=== PATIENT | male | born 1980 | race Caucasian/White ===

== ENCOUNTER 2017-01-09 11:39 | Inpatient (IN) | payer MEDICAID ==
[2017-01-09 12:33] LABS: BILIRUBIN,URINE NEGATIVE (NEGATIVE); PH,URINE 8.5 PH (5.0-7.5)
[2017-01-09 12:36] LABS: UA w/ MICROSCOPIC CHARGE YES
[2017-01-09 12:44] LABS: UR CULTURE IF IND INDICATED
[2017-01-09] MEDS ORDERED: ONDANSETRON 4 MG/2 ML VIAL IVP STA ×2 (13:32→14:29)
[2017-01-09] MEDS ORDERED: SODIUM CHLORIDE 0.9% 1,000 ML IV ONE (13:32)
[2017-01-09] MEDS ORDERED: HYDROmorphone 1 MG/ML SYRINGE IVP STA ×2 (13:32→14:00)
[2017-01-09] MEDS ORDERED: HYDROmorphone 1 MG/ML SYRINGE ONE ×3 (13:45→20:03)
[2017-01-09] MEDS ORDERED: SODIUM CHLORIDE FLUSH 0.9% 10 ML SYRINGE IVP ONE ×4 (13:45→20:06)
[2017-01-09] MEDS ORDERED: ONDANSETRON 4 MG/2 ML VIAL ONE ×2 (13:45→14:47)
[2017-01-09 13:59] LABS: ALBUMIN/GLOBULIN RATIO 1.5 (1.0-2.2); BILIRUBIN,TOTAL 0.8 mg/dL (0.2-1.0); CALCIUM 10.6 mg/dL (8.5-10.3); CREATININE 1.2 mg/dL (0.6-1.2); POTASSIUM 3.9 mmol/L (3.5-5.0); TOTAL PROTEIN 9.2 g/dL (6.7-8.2)
--- NOTE | 2017-01-09 13:59 | XRAY Preliminary Report ---
Exam: XR Chest 1 View IMPRESSION: Normal single view chest. [facility] SITE ID: [id number]
[2017-01-09 14:01] LABS: BASOPHILS % (AUTO) 0.3 %; HCT - HEMATOCRIT 55.5 % (42.0-52.0); HGB - HEMOGLOBIN 18.5 g/dL (14.0-18.0); LYMPHOCYTES # (AUTO) 1.3 10^3/uL (1.5-3.5); LYMPHOCYTES % (AUTO) 7.5 %; MEAN CORPUSCULAR HEMOGLOBIN 28.9 pg (27.0-31.0); MEAN CORPUSCULAR HGB CONC 33.4 g/dL (32.0-36.0); MEAN CORPUSCULAR VOLUME 86.6 fL (80.0-94.0); MEAN PLATELET VOLUME 7.4 fL (7.4-11.4); MONOCYTES # (AUTO) 0.9 10^3/uL (0.0-1.0); NEUTROPHILS # (AUTO) 15.2 10^3/uL (1.5-6.6); NEUTROPHILS % (AUTO) 87.2 %; NUCLEATED RED BLOOD CELLS AUTO 0.4 /100WBC; RED BLOOD COUNT 6.41 10^6/uL (4.70-6.10); RED CELL DISTRIBUTION WIDTH 15.2 % (12.0-15.0); UNCORRECTED WHITE BLOOD COUNT 17.4 x10^3/uL; WHITE BLOOD COUNT 17.4 x10^3/uL (4.8-10.8)
--- NOTE | 2017-01-09 14:02 | XRAY Report ---
EXAM: CHEST RADIOGRAPHY EXAM DATE: 01/09/2017 01:53 PM. CLINICAL HISTORY: COUGH CP RONCHI ON LEFT. COMPARISON: None. TECHNIQUE: 1 view. FINDINGS: Lungs/Pleura: No focal opacities evident. No pleural effusion. No pneumothorax. Decrease lung volumes Mediastinum: Within exam limitations, cardiomediastinal contour is normal. Other: None. IMPRESSION: Normal single view chest. [facility] Referring Provider Line: [phone] SITE ID: [id number]
[2017-01-09 14:42] LABS: PLATELET ESTIMATE, MANUAL NORMAL (130-450,000) (NORMAL); PLATELET MORPHOLOGY NORMAL APPEARANCE (NORMAL)
--- NOTE | 2017-01-09 14:45 | ED Physician Documentation ---
History of Present Illness - Stated complaint Stated Complaint: ABD PX/VOMITING - Chief complaint Chief Complaint: Abd Pain - Additonal information Additional information: hx from pt states he is normally healthy, no Pshx 3 days of cough NVD blood in vomit and diarrhea burning diffuse abd pain and chest pain no travel no sick contacts no recent antibiotics no camping no bad food states no hx same states occ marijuana use, no other drugs, no EtOH, smokes too Review of Systems Constitutional: denies: Fever, Chills Cardiac: reports: Chest pain / pressure Respiratory: reports: Dyspnea, Cough GI: reports: Abdominal Pain, Nausea, Vomiting, Diarrhea, Hematemesis, Bloody / black stool : denies: Dysuria, Testicular pain Endocrine: denies: Easy bruising / bleeding Immunocompromised: denies: Immunocompromised PD PAST MEDICAL HISTORY - Past Medical History Past Medical History: Yes GI: Ulcers - Present Medications Home Medications: Ambulatory Orders Medication Instructions Recorded Confirmed Ondansetron Odt [Zofran] 4 mg TL Q6H PRN #10 tablet 01/09/17 Sucralfate 1 gm PO ACHS #120 tablet 01/09/17 raNITIdine [Zantac] 150 mg PO BID #60 tablet 01/09/17 - Allergies Allergies/Adverse Reactions: Allergies Allergy/AdvReac Type Severity Reaction Status Date / Time No Known Drug Allergies Allergy Verified 01/09/17 11:45 - Social History Does the pt smoke?: Yes Smoking Status: Current every day smoker Does the pt drink ETOH?: No Substance Use and Type: Marijuana - Immunizations Immunizations: TDAP >10years/unknown PD ED PE NORMAL - Vitals Vital signs reviewed: Yes - General General: Alert and oriented X 3 - HEENT HEENT: PERRL - Neck Neck: Supple, no meningeal sign - Cardiac Cardiac: RRR - Respiratory Respiratory: No respiratory distress, Other (ronchi on left) - Abdomen Abdomen: Soft, Other (diffuse severe TTP but no peritoneal signs, non distended) - Male Male : Deferred (pt states no GI pain or swelling) - Neuro Neuro: Alert and oriented X 3 Results - Vitals Vitals: Vital Signs - 24 hr 01/09/17 01/09/17 01/09/17 11:41 12:23 13:30 Temperature 37 C Heart Rate 88 71 Respiratory 20 16 Rate Blood Pressure 150/84 H 147/94 H O2 Saturation 97 100 01/09/17 01/09/17 01/09/17 14:48 16:07 17:35 Temperature Heart Rate 77 89 84 Respiratory 16 16 16 Rate Blood Pressure 134/78 H 129/64 130/80 O2 Saturation 99 98 98 01/09/17 18:46 Temperature 36.8 C Heart Rate 80 Respiratory 18 Rate Blood Pressure 111/81 H O2 Saturation 96 Oxygen O2 Source Room air - Labs Labs: Laboratory Tests 01/09/17 01/09/17 01/09/17 12:26 13:40 13:40 WBC 17.4 H RBC 6.41 H Hgb 18.5 H Hct 55.5 H MCV 86.6 MCH 28.9 MCHC 33.4 RDW 15.2 H Plt Count 363 MPV 7.4 Neut # 15.2 H Lymph # 1.3 L [place] # 0.9 Eos # 0.0 Baso # 0.0 Absolute Nucleated RBC 0.08 Nucleated RBCs 0.4 Manual Slide Review Indicated Platelet Estimate NORMAL (130-450,000) Platelet Morphology NORMAL APPEARANCE RBC Morph Micro Appear NORMAL APPEARANCE Sodium 141 Potassium 3.9 Chloride 92 L Carbon Dioxide 33 H Anion Gap 16.0 H BUN 20 Creatinine 1.2 Estimated GFR (MDRD) 69 L Glucose 144 H Calcium 10.6 H Total Bilirubin 0.8 AST 35 ALT 27 Alkaline Phosphatase 104 Total Protein 9.2 H Albumin 5.5 Globulin 3.7 Albumin/Globulin Ratio 1.5 Lipase 15 L Urine Color DARK YELLOW Urine Clarity CLEAR Urine pH 8.5 H Ur Specific [place] 1.020 Urine Protein 100 H Urine Glucose (UA) NEGATIVE Urine Ketones 15 H Urine Occult Blood NEGATIVE Urine Nitrite NEGATIVE Urine Bilirubin NEGATIVE Urine Urobilinogen 0.2 (NORMAL) Ur Leukocyte Esterase NEGATIVE Urine RBC 0-5 Urine WBC 11-25 H Urine WBC Clumps PRESENT Ur Squamous Epith Cells FEW Squamous Urine Bacteria Many H Ur Microscopic Review INDICATED Urine Culture Comments INDICATED - Rads (name of study) CXR Radiology: See rad report (NACPD) CT AP with IV con Radiology: See rad report PD MEDICAL DECISION MAKING - ED course ED course: pt has sig ronchi L lung on exam, CXR fine, but given sx, exam and elev WBC considered txing empirically - but pt will be admitted for intractable GI sx so more prudent to simply recheck the CXR in the Am re severe burning abd pain CT = no esoph thickening and dilated gastric but no other acute, perhaps PUD/gastritis pt reported blood in vomit stool but not seen in ED ( I examined emesis myself and no blood was seen in that bag) and H/H stable + UA but no urinary sx - will wait on cx not getting relief with dilaudid so will try pepcid GI cocktail etc if sx controlled hope to dc with zmax for pna and zantac carafate phenergan despite dilaudid zofran phenergan carafate [place] sx persist and pt cannot tolerate PO will admit for intractable sx trying ofirmev for pain now Departure - Departure Disposition: ED Place in Observation Clinical Impression: Intractable abdominal pain, GERD with esophagitis Intractable vomiting Qualifiers: Vomiting type: unspecified Nausea presence: unspecified Qualified Code(s): R11.10 - Vomiting, unspecified Instructions: Abdominal Pain, ED GERD, ED Pneumonia Adult Prescriptions: Sucralfate 1 gm PO ACHS #120 tablet raNITIdine [Zantac] 150 mg PO BID #60 tablet Ondansetron Odt [Zofran] 4 mg TL Q6H PRN #10 tablet PRN Reason: Nausea / Vomiting Comments: The CT scan of your abdomen did not show any major problems in the abdomen - no bowel blockage/infection/perforation, no kidney stones or gallstones, normal pancreas, normal appendix, no aneurysm But your esophagus was thickened on CT scan and you should follow up with your PMD to get a referral to GI to get a scope of your stomach and esophagus This finding also makes me suspect you pain is due to gastritis / ulcers and acid reflux so I have prescribed medications for that. That would explain the blood in your vomit/stool too The blood work was notable for a high white blood cell count indicating infection or inflammation, a slightly elevated glucose level which could be due to illness but needs to be rechecked when you feel better, and an elevated calcium level which you should see you PMD about for further work up The urine test showed a possible urine infection, a final culture is being run and will be resulted in the next few days Your chest xray looked fine too but your left lung sounds terrible so i would recommend a repeat xray in a few days
[2017-01-09] MEDS ORDERED: IOPAMIDOL-300 100 ML VIAL IVP ONE (15:24)
--- NOTE | 2017-01-09 15:36 | CT Preliminary Report ---
Exam: CT Abdomen/Pelvis W/ IMPRESSION: 1. Distal esophageal wall thickening. 2. Moderate gastric distention. 3. Normal appendix [facility] SITE ID: [id number]
--- NOTE | 2017-01-09 15:38 | CT Report ---
EXAM: CT ABDOMEN AND PELVIS EXAM DATE: 01/09/2017 03:25 PM. CLINICAL HISTORY: Abdominal pain. COMPARISONS: None. TECHNIQUE: Routine helical CT imaging was performed through the abdomen and pelvis. IV contrast: 100 cc Isovue-300. Enteric contrast: No. Reconstructions: Coronal and sagittal. In accordance with CT protocol optimization, one or more of the following dose reduction techniques w ere utilized for this exam: automated exposure control, adjustment of mA and/or KV based on patient s ize, or use of iterative reconstructive technique. FINDINGS: Lung Bases: Unremarkable. Liver: Subcentimeter density left lobe too small to characterize. Gallbladder/Bile Ducts: Post cholecystectomy Spleen: Normal. Pancreas: Normal. Adrenal Glands: Normal. Kidneys: Normal. No masses or hydronephrosis. Peritoneal Cavity/Bowel: Distal esophageal wall thickening. Distended stomach. No free fluid. No retr operitoneal adenopathy. The appendix is well visualized and normal. Pelvic Organs: Normal. The bladder and visualized pelvic organs are within normal limits. Vasculature: No aneurysms or other significant abnormality. Bones: No significant abnormality. Other: None. IMPRESSION: 1. Distal esophageal wall thickening. 2. Moderate gastric distention. 3. Normal appendix [facility] Referring Provider Line: [phone] SITE ID: [id number]
[2017-01-09] MEDS ORDERED: LIDOCAINE VISCOUS 2% 15 ML UDC MM STA (16:59)
[2017-01-09] MEDS ORDERED: FAMOTIDINE 20 MG/50 ML 50 ML IV ONE ×2 (16:59→17:13)
[2017-01-09] MEDS ORDERED: PROMETHAZINE INJ 25 MG in SODIUM CHLORIDE 0.9% 50 ML IV STA (16:59)
[2017-01-09] MEDS ORDERED: MAG HYDROX/AL HYDROX/SIMETH 30 ML UDC PO STA (16:59)
[2017-01-09] MEDS ORDERED: MAG HYDROX/AL HYDROX/SIMETH 30 ML UDC ONE (17:13)
[2017-01-09] MEDS ORDERED: LIDOCAINE VISCOUS 2% 15 ML UDC MM ONE (17:13)
[2017-01-09] MEDS ORDERED: PROMETHAZINE 25 MG/1 ML VIAL ONE (17:13)
[2017-01-09] MEDS ORDERED: SODIUM CHLORIDE FLUSH 0.9% 10 ML SYRINGE IVP PRN ×3 (19:07→19:50)
[2017-01-09] MEDS ORDERED: PROMETHAZINE 25 MG/1 ML VIAL IM PRN ×4 (19:07→19:50)
[2017-01-09] MEDS ORDERED: HYDROmorphone 1 MG/ML SYRINGE IVP PRN ×3 (19:07→19:50)
[2017-01-09] MEDS ORDERED: PROCHLORPERAZINE 10 MG/2 ML VIAL IVP PRN ×3 (19:07→19:50)
[2017-01-09] MEDS ORDERED: PANTOPRAZOLE 40 MG VIAL IVP SCH ×4 (19:12→20:00)
[2017-01-09] MEDS ORDERED: MAG HYDROX/AL HYDROX/SIMETH 30 ML UDC PO PRN ×3 (19:22→19:50)
[2017-01-09] MEDS ORDERED: PROCHLORPERAZINE 10 MG/2 ML VIAL ONE (19:53)
[2017-01-09] MEDS ORDERED: DEXTROSE 5%-0.9% NACL 1,000 ML IV SCH ×3 (20:00)
[2017-01-09] MEDS: PROCHLORPERAZINE 10 MG/2 ML VIAL IVP PRN (20:00)
[2017-01-09] MEDS ORDERED: DEXTROSE 5%-0.9% NACL 1,000 ML IV ONE (20:06)
[2017-01-09] MEDS: HYDROmorphone 1 MG/ML SYRINGE IVP PRN (20:10)
[2017-01-09 20:35] LABS: ABG ANALYSIS TIME 2005; ABG PCO2 38 mmHg (34-45); ABG PH 7.47 (7.35-7.45)
[2017-01-09 20:36] LABS: ABG BASE EXCESS 3.4 mmol/L (-2.0-3.0); ABG OXYGEN SATURATION 97 % (94-98); ABG PO2 90 mmHg (80-100); ABG ROOM AIR YES; ABG SITE OF DRAW RIGHT RADIAL; ABG TCO2 28.2 MMOL/L (21.0-29.0); ALLEN TEST POSITIVE
[2017-01-09] MEDS ORDERED: NICOTINE 14 MG PATCH TOP SCH ×2 (21:00→21:04)
[2017-01-09] MEDS: SODIUM CHLORIDE FLUSH 0.9% 10 ML SYRINGE IVP SCH (21:08)
[2017-01-09] MEDS: DEXTROSE 5%-0.9% NACL 1,000 ML IV SCH (21:08)
[2017-01-09] MEDS: SUCRALFATE 1 GM/10 ML UDC PO SCH (21:36)
[2017-01-09] MEDS ORDERED: SODIUM CHLORIDE FLUSH 0.9% 10 ML SYRINGE IVP SCH ×3 (22:00)
[2017-01-09] MEDS ORDERED: SUCRALFATE 1 GM/10 ML UDC PO SCH ×3 (22:00)
[2017-01-10] MEDS: HYDROmorphone 1 MG/ML SYRINGE IVP PRN ×8 (00:05→21:37)
--- NOTE | 2017-01-10 01:43 | HISTORY & PHYSICAL EXAMINATION ---
DATE OF ADMISSION: 01/09/2017 HISTORY OF PRESENT ILLNESS: This is a 36-year-old white male with a negative past medical history. He is a smoker of 1/2-1 pack a day. The patient presents with a 2-day history of abdominal pain, retching, gagging, nausea and vomiting, one episode of hematemesis by his description, possibly diarrhea, overall arthralgias. In the emergency room, he was treated with antiemetics, as well as pain medications, but had intractable vomiting. Evaluation was undertaken and he was admitted for management of intractable vomiting, as well as abnormal lab results and x-ray results. REVIEW OF SYSTEMS: As above. He denies fever, chills, cough, sputum production, chest pain except that which radiates up from the abdomen, syncope, leg edema, prior history of similar symptoms. All other organ review of systems is negative. FAMILY HISTORY: Negative for heart disease or any significant abnormalities. MEDICATIONS AT HOME: None. ALLERGIES: NONE. SOCIAL HISTORY: He does drink alcohol socially, smokes cigarettes 1/2 to 1 pack a day, denies illicit drug use. He does occasionally use marijuana. PHYSICAL EXAMINATION: GENERAL: Reveals a white male who is in distress when he is vomiting. He is in no respiratory distress. He is warm and dry. He appears older than his age. VITAL SIGNS: Blood pressure 130/70, heart rate is in the 70s and 80s in sinus rhythm. He is afebrile, temperature 37. HEENT: Unremarkable. He has moist mucosa. NECK: Shows no JVD in the supine position. No carotid bruits, no thyromegaly or lymphadenopathy. CHEST: Clear. HEART: Sounds are normal. ABDOMEN: Soft, decreased bowel sounds, nontender. No guarding or rebound. EXTREMITIES: No clubbing, cyanosis, or edema. No calf tenderness. NEUROLOGIC: Grossly intact. LABORATORY: Sodium 141, potassium 3.9, chloride 92, carbon dioxide 33, anion gap high at 16. Creatinine 1.2. AST and ALT are normal. Lipase normal. White blood count elevated at 17.4 with a left shift with 15% neutrophils, hemoglobin is elevated at 18.5 (suggesting dehydration). Platelet count normal at 363. No INR was done. Urine shows pH of 8.5, specific gravity 1.02. He has urine ketones that are 15 (high), 11-25 white blood cells, and many bacteria. IMAGING: Chest x-ray unremarkable. CT of the abdomen and pelvis was remarkable and showed thickening of the distal esophagus, distended stomach normal- appearing appendix. No abdominal free air or adenopathy. There is no gallbladder (post-cholecystectomy). IMPRESSION: 1. Esophagitis. 2. Gastroenteritis. 3. Intractable vomiting. 4. Urinary tract infection. 5. Dehydration suggested by elevated hemoglobin and creatinine. PLAN: Admit the patient for hydration, start D5-normal saline at 100 mL an hour. Follow his electrolytes, magnesium, daily BMP. Obtain a blood gas to assure that he does not have acidosis, given the high anion gap which is likely from dehydration. Culture of the urine, blood and start antibiotics for urinary tract infection. Begin antiemetics and pain medications and begin Maalox p.r.n. and Carafate around the clock. Surgical consult for an EGD. Bowel rest except for ice chips. Follow his CBC and differential. Nicoderm patch will be ordered at his request. JOB #: [id number] EXT JOB #:[id number] ASHLEY
[2017-01-10] MEDS: PROCHLORPERAZINE 10 MG/2 ML VIAL IVP PRN ×3 (03:31→18:31)
[2017-01-10 04:19] LABS: H. PYLORI IGG ANTIBODY Negative (Negative); HPYLORI NEG QC Negative (Negative); HPYLORI POS QC POSITIVE (Positive)
[2017-01-10] MEDS: DEXTROSE 5%-0.9% NACL 1,000 ML IV SCH ×2 (05:52→21:36)
[2017-01-10] MEDS: SODIUM CHLORIDE FLUSH 0.9% 10 ML SYRINGE IVP SCH ×3 (05:53→17:24)
[2017-01-10] MEDS: SUCRALFATE 1 GM/10 ML UDC PO SCH (05:53)
[2017-01-10] MEDS: POLYETHYLENE GLYCOL 3350 17 GM PACKET PO SCH (07:28)
[2017-01-10] MEDS ORDERED: POLYETHYLENE GLYCOL 3350 17 GM PACKET PO SCH ×3 (09:00)
[2017-01-10] MEDS: NICOTINE 14 MG PATCH TOP SCH (10:16)
[2017-01-10] MEDS: ceFAZolin 1 GM in SODIUM CHLORIDE 0.9% MINIBAG 100 ML IV SCH ×2 (10:16→16:37)
[2017-01-10] MEDS ORDERED: BENZOCAINE/TETRACAINE/BUTAMBEN SPRAY 56 GM TOP ONE (15:16)
--- NOTE | 2017-01-10 15:16 | CONSULTATION NOTE ---
DATE OF CONSULTATION: 01/10/2017 00:00:00 REQUESTING PROVIDER: Prince Carrion MD. REASON FOR REFERRAL: Abdominal pain, nausea and vomiting. HISTORY OF PRESENT ILLNESS: The patient is a 36-year-old male who presents with at least a 4-year his tory of intermittent nausea and vomiting along with epigastric pain. He now presents to the hospital with 4-day ongoing history of this nausea and vomiting. Four years ago he had developed these symptom s and had underwent a laparoscopic cholecystectomy in order to see if this would help relieve his sym ptoms. It did not. Since then, he has had these symptoms every couple months. There does not appear t o be anything that sets it off such as diet or activity. He has tried [id number] PPIs which has helped his reflux improve, but has not helped with nausea, vomiting, and abdominal pain. He had seen his primary doctor recently who had referred him to a reordering clerk, but he has not had time to followup. He now presents with a 4-day history of these symptoms. It usually starts with throwing up what he had eaten and then dry heaves or emesis with bile that is green. Epigastric pain is what usu ally starts and does not radiate anywhere. He has had minimal blood with the emesis. He has not had a ny significant diarrhea or constipation, fevers or chills. He thinks he may have had an ulcer in the past but has never had an upper endoscopy. He also thinks that they have checked his stools at an out side facility and that may have been positive for H pylori, but he is not able to confirm this. PAST SURGICAL HISTORY: Laparoscopic cholecystectomy. MEDICATIONS: None. ALLERGIES TO MEDICATIONS: NONE. FAMILY HISTORY: He feels that he believes his mother was tested positive for the BRCA gene and she clements d encouraged the patient to be tested. HABITS: The patient drinks alcohol socially. He smokes a 1/2 to a pack of cigarettes a day. Denies an y drug use. SOCIAL HISTORY: The patient is single and is moving to [facility] shortly. REVIEW OF SYSTEMS: A complete review of systems was obtained. CONSTITUTIONAL: Not feeling well. GASTROINTESTINAL: Abdominal pain, nausea, and vomiting. A 12-point review of systems obtained with pertinent positives discussed and all others being negativ e. PHYSICAL EXAMINATION: VITAL SIGNS: Temperature is 36.6, heart rate 70, blood pressure 121/81. GENERAL: The patient is lying in bed. He is cooperative, in no distress at the current time. HEENT: Eyes nonicteric. NECK: No lymphadenopathy. HEART: Regular. LUNGS: Clear. BACK: Nontender. ABDOMEN: Soft, nontender. No hernias. EXTREMITIES: No edema or cyanosis. NEUROLOGICAL: The patient appears to be neurologically intact without any deficits. PSYCHOLOGICAL: The patient is coherent, cooperative, and appears to answer questions fully. DIAGNOSTIC DATA: White blood cell count of 17.4, hemoglobin 18.5, platelets of 363. Liver function te sts within normal limits. ASSESSMENT: 1. Abdominal pain, nausea, vomiting, most likely secondary to some type of gastritis. I recommend he undergo esophagogastroduodenoscopy with possible biopsy. The risks and possible complications of the procedure have been explained to him and include, but are not limited to bleeding, aspiration, injuri es to the GI tract causing major morbidity, need for further intervention, negative endoscopy, etc. Yasir cotton wishes to proceed with the procedure. 2. Dehydration as his hemoglobin and rest of labs are being elevated. He has been adequately hydrated overnight. PLAN: 1. NPO. 2. IV fluids. 3. Esophagogastroduodenoscopy with biopsy. JOB #: [id number] EXT JOB #:[id number]
[2017-01-10] MEDS ORDERED: SODIUM CHLORIDE 0.9% 1,000 ML IV ONE (15:17)
[2017-01-10] MEDS ORDERED: fentaNYL 100 MCG/2 ML VIAL ONE (15:48)
[2017-01-10] MEDS ORDERED: FLUCONAZOLE 200 MG/100 ML 100 ML IV SCH (16:00)
[2017-01-10] MEDS ORDERED: TUBERCULIN 5 TUB UNIT/0.1 ML 1 ML MDV ID ONE (17:11)
--- NOTE | 2017-01-10 17:17 | PROVIDER PROGRESS NOTE ---
Assessment/Plan - Problem List (1) GERD with esophagitis Assessment/Plan: He is slightly improved. (2) Fungal esophagitis Assessment/Plan: EGD revealed fungal esophagitis Will stat diflucan Will check for TB and HIVB. - Current Meds Current Meds: Current Medications Generic Name Dose Route Start Last Admin Trade Name Freq PRN Reason Stop Dose Admin Hydromorphone HCl 1 mg 01/09/17 19:50 01/10/17 14:32 Dilaudid Inj IVP 1 mg Q2HR PRN Administration Pain 8 to 10 Dextrose/Sodium Chloride 1,000 mls @ 100 mls/hr 01/09/17 20:00 01/10/17 05:52 D5ns IV 100 mls/hr .Q10H MORAIMA Administration Cefazolin Sodium 1 gm/ Sodium 100 mls @ 200 mls/hr 01/10/17 09:00 01/10/17 16: 37 Chloride IV 200 mls/hr Q8H MORAIMA Administration Fluconazole 100 mls @ 100 mls/hr 01/10/17 16:00 01/10/17 16:38 Diflucan 200 Mg/100 Ml IV 01/10/17 18:00 100 mls/hr ONCE MORAIMA Administration Nicotine 1 patch 01/10/17 09:00 01/10/17 10:16 Nicoderm TOP 1 patch DAILY MORAIMA Administration Polyethylene Glycol 17 gm 01/10/17 09:00 01/10/17 07:28 Miralax PO Not Given DAILY MORAIMA Prochlorperazine Edisylate 10 mg 01/09/17 19:50 01/10/17 10:15 Compazine Inj IVP 10 mg Q6HR PRN Administration Nausea / Vomiting Sodium Chloride 10 ml 01/09/17 22:00 01/10/17 14:28 Normal Saline Flush 0.9% IVP Not Given Q8HR MORAIMA - Lab Result Fish Bone Diagrams: 01/09/17 13:40 01/09/17 13:40 - Additional Planning My Orders: My Active Orders 01/10/17 16:58 Miscellaenous Nursing Order [RC] QSHIFT 01/10/17 17:11 Tuberculin [Tubersol] 5 unit ID ONCE ONE 01/11/17 05:00 CBC - COMP BLD CT W/AUTO DIFF [HEME] DAILYLAB COMPREHENSIVE METABOLIC PANEL [CHEM] DAILYLAB HIV AB/AG 4TH GEN W/REFLEX [REFLAB] DAILYLAB 01/12/17 05:00 CBC - COMP BLD CT W/AUTO DIFF [HEME] DAILYLAB COMPREHENSIVE METABOLIC PANEL [CHEM] DAILYLAB 01/13/17 05:00 CBC - COMP BLD CT W/AUTO DIFF [HEME] DAILYLAB COMPREHENSIVE METABOLIC PANEL [CHEM] DAILYLAB Subjective - Subjective Patient Reports: Resting Comfortably, Abdominal Pain Objective Vital Signs: Vital Signs - 24 hr 01/09/17 01/09/17 01/10/17 19:35 23:59 08:11 Temperature 37.0 C 37.1 C 36.6 C Heart Rate [ 67 68 70 Brachial] Respiratory 16 22 18 Rate Blood Pressure [Left Brachial artery] Blood Pressure 143/76 H 132/81 H 121/81 H [Right Brachial artery] O2 Saturation 99 98 98 01/10/17 01/10/17 01/10/17 15:25 15:30 15:35 Temperature Heart Rate [ Brachial] Respiratory Rate Blood Pressure [Left Brachial artery] Blood Pressure [Right Brachial artery] O2 Saturation 93 98 96 01/10/17 01/10/17 01/10/17 15:40 15:51 16:00 Temperature Heart Rate [ Brachial] Respiratory Rate Blood Pressure [Left Brachial artery] Blood Pressure [Right Brachial artery] O2 Saturation 100 97 96 01/10/17 01/10/17 16:15 16:45 Temperature 36.7 C 36.3 C L Heart Rate [ 94 49 L Brachial] Respiratory 16 18 Rate Blood Pressure 96/63 124/74 [Left Brachial artery] Blood Pressure [Right Brachial artery] O2 Saturation 95 100 Oxygen O2 Source Room air I&O (Last 24 Hrs): Intake and Output Totals x24h 01/08/17 01/09/17 01/10/17 23:59 23:59 23:59 Intake Total 160 721 Output Total 300 Balance -140 721 General: Alert, Oriented x3, Cooperative HEENT: PERRLA, EOMI Neck: No JVD, No thyromegaly Neuro: Alert, Oriented Times 3 Cardiovascular: Regular rate, No murmurs Respiratory: No respiratory distress, Breath sounds nml Abdomen: Normal bowel sounds - Results Results: Laboratory Results WBC 17.4 x10^3/uL (4.8-10.8) H 01/09/17 13:40 RBC 6.41 10^6/uL (4.70-6.10) H 01/09/17 13:40 Hgb 18.5 g/dL (14.0-18.0) H 01/09/17 13:40 Hct 55.5 % (42.0-52.0) H 01/09/17 13:40 MCV 86.6 fL (80.0-94.0) 01/09/17 13:40 MCH 28.9 pg (27.0-31.0) 01/09/17 13:40 MCHC 33.4 g/dL (32.0-36.0) 01/09/17 13:40 RDW 15.2 % (12.0-15.0) H 01/09/17 13:40 Plt Count 363 10^3/uL (130-450) 01/09/17 13:40 MPV 7.4 fL (7.4-11.4) 01/09/17 13:40 Neut # 15.2 10^3/uL (1.5-6.6) H 01/09/17 13:40 Lymph # 1.3 10^3/uL (1.5-3.5) L 01/09/17 13:40 [place] # 0.9 10^3/uL (0.0-1.0) 01/09/17 13:40 Eos # 0.0 10^3/uL (0.0-0.7) 01/09/17 13:40 Baso # 0.0 10^3/uL (0.0-0.1) 01/09/17 13:40 Absolute Nucleated RBC 0.08 x10^3/uL 01/09/17 13:40 Nucleated RBCs 0.4 /100WBC 01/09/17 13:40 Manual Slide Review Indicated 01/09/17 13:40 Platelet Estimate NORMAL (130-450,000) (NORMAL) 01/09/17 13:40 Platelet Morphology NORMAL APPEARANCE (NORMAL) 01/09/17 13:40 RBC Morph Micro Appear NORMAL APPEARANCE (NORMAL) 01/09/17 13:40 Bld Gas Analysis Time 200401/09/17 20:05 Sample Site RIGHT RADIAL 01/09/17 20:05 ABG pH 7.47 (7.35-7.45) H 01/09/17 20:05 ABG pCO2 38 mmHg (34-45) 01/09/17 20:05 ABG pO2 90 mmHg (80-100) 01/09/17 20:05 ABG HCO3 27.0 mmol/L (22.0-26.0) H 01/09/17 20:05 ABG Total CO2 28.2 MMOL/L (21.0-29.0) 01/09/17 20:05 ABG O2 Saturation 97 % (94-98) 01/09/17 20:05 ABG Base Excess 3.4 mmol/L (-2.0-3.0) H 01/09/17 20:05 Nghia Test POSITIVE 01/09/17 20:05 Room Air YES 01/09/17 20:05 Sodium 141 mmol/L (135-145) 01/09/17 13:40 Potassium 3.9 mmol/L (3.5-5.0) 01/09/17 13:40 Chloride 92 mmol/L (101-111) L 01/09/17 13:40 Carbon Dioxide 33 mmol/L (21-32) H 01/09/17 13:40 Anion Gap 16.0 (6-13) H 01/09/17 13:40 BUN 20 mg/dL (6-20) 01/09/17 13:40 Creatinine 1.2 mg/dL (0.6-1.2) 01/09/17 13:40 Estimated GFR (MDRD) 69 (>89) L 01/09/17 13:40 Glucose 144 mg/dL (70-100) H 01/09/17 13:40 Calcium 10.6 mg/dL (8.5-10.3) H 01/09/17 13:40 Total Bilirubin 0.8 mg/dL (0.2-1.0) 01/09/17 13:40 AST 35 IU/L (10-42) 01/09/17 13:40 ALT 27 IU/L (10-60) 01/09/17 13:40 Alkaline Phosphatase 104 IU/L (42-121) 01/09/17 13:40 Total Protein 9.2 g/dL (6.7-8.2) H 01/09/17 13:40 Albumin 5.5 g/dL (3.2-5.5) 01/09/17 13:40 Globulin 3.7 g/dL (2.1-4.2) 01/09/17 13:40 Albumin/Globulin Ratio 1.5 (1.0-2.2) 01/09/17 13:40 Lipase 15 U/L (22-51) L 01/09/17 13:40 Urine Color DARK YELLOW 01/09/17 12:26 Urine Clarity CLEAR (CLEAR) 01/09/17 12:26 Urine pH 8.5 PH (5.0-7.5) H 01/09/17 12:26 Ur Specific [place] 1.020 (1.002-1.030) 01/09/17 12:26 Urine Protein 100 mg/dL (NEGATIVE) H 01/09/17 12:26 Urine Glucose (UA) NEGATIVE mg/dL (NEGATIVE) 01/09/17 12:26 Urine Ketones 15 mg/dL (NEGATIVE) H 01/09/17 12:26 Urine Occult Blood NEGATIVE (NEGATIVE) 01/09/17 12:26 Urine Nitrite NEGATIVE (NEGATIVE) 01/09/17 12:26 Urine Bilirubin NEGATIVE (NEGATIVE) 01/09/17 12:26 Urine Urobilinogen 0.2 (NORMAL) E.U./dL (NORMAL) 01/09/17 12:26 Ur Leukocyte Esterase NEGATIVE (NEGATIVE) 01/09/17 12:26 Urine RBC 0-5 /HPF (0-5) 01/09/17 12:26 Urine WBC 11-25 /HPF (0-3) H 01/09/17 12:26 Urine WBC Clumps PRESENT 01/09/17 12:26 Ur Squamous Epith Cells FEW Squamous (<= Few) 01/09/17 12:26 Urine Bacteria Many /HPF (None Seen) H 01/09/17 12:26 Ur Microscopic Review INDICATED 01/09/17 12:26 Urine Culture Comments INDICATED 01/09/17 12:26 H. pylori IgG Antibody Negative (Negative) 01/09/17 13:40
[2017-01-10] MEDS: MAG HYDROX/AL HYDROX/SIMETH 30 ML UDC PO PRN (17:21)
[2017-01-10] MEDS: SODIUM CHLORIDE FLUSH 0.9% 10 ML SYRINGE IVP PRN ×2 (19:23→21:37)
[2017-01-10] MEDS: ALPRAZolam 0.25 MG TABLET PO PRN (22:37)
[2017-01-11] MEDS: ceFAZolin 1 GM in SODIUM CHLORIDE 0.9% MINIBAG 100 ML IV SCH ×3 (01:47→17:01)
[2017-01-11] MEDS: HYDROmorphone 1 MG/ML SYRINGE IVP PRN ×6 (01:48→20:28)
[2017-01-11] MEDS: PROCHLORPERAZINE 10 MG/2 ML VIAL IVP PRN ×3 (02:11→17:09)
[2017-01-11] MEDS: SODIUM CHLORIDE FLUSH 0.9% 10 ML SYRINGE IVP PRN ×2 (02:16→02:17)
[2017-01-11] MEDS: SODIUM CHLORIDE FLUSH 0.9% 10 ML SYRINGE IVP SCH ×3 (06:09→17:02)
[2017-01-11] MEDS: PANTOPRAZOLE 40 MG TABLET PO SCH (06:10)
[2017-01-11 06:46] LABS: BASOPHILS # (AUTO) 0.1 10^3/uL (0.0-0.1); BASOPHILS % (AUTO) 0.7 %; EOSINOPHILS % (AUTO) 0.2 %; HCT - HEMATOCRIT 44.9 % (42.0-52.0); HGB - HEMOGLOBIN 14.9 g/dL (14.0-18.0); LYMPHOCYTES # (AUTO) 1.8 10^3/uL (1.5-3.5); LYMPHOCYTES % (AUTO) 16.5 %; MEAN CORPUSCULAR HEMOGLOBIN 29.4 pg (27.0-31.0); MEAN CORPUSCULAR HGB CONC 33.2 g/dL (32.0-36.0); MEAN CORPUSCULAR VOLUME 88.5 fL (80.0-94.0); MEAN PLATELET VOLUME 7.2 fL (7.4-11.4); MONOCYTES # (AUTO) 0.6 10^3/uL (0.0-1.0); MONOCYTES % (AUTO) 5.2 %; NEUTROPHILS # (AUTO) 8.5 10^3/uL (1.5-6.6); NEUTROPHILS % (AUTO) 77.4 %; RED BLOOD COUNT 5.07 10^6/uL (4.70-6.10); RED CELL DISTRIBUTION WIDTH 15.2 % (12.0-15.0)
[2017-01-11 06:58] LABS: ALBUMIN/GLOBULIN RATIO 1.4 (1.0-2.2); BILIRUBIN,TOTAL 0.8 mg/dL (0.2-1.0); CALCIUM 8.9 mg/dL (8.5-10.3); CREATININE 0.9 mg/dL (0.6-1.2); POTASSIUM 4.2 mmol/L (3.5-5.0); TOTAL PROTEIN 6.4 g/dL (6.7-8.2)
--- NOTE | 2017-01-11 07:55 | PROVIDER PROGRESS NOTE ---
Assessment/Plan - Problem List (1) GERD with esophagitis Assessment/Plan: He ate some pudding last night and kept it down though it hurt. H pylori was neg. (2) Fungal esophagitis Assessment/Plan: He had HIV test which is pending. He had PPD placed which is neg so far,24 hrs. he is on the Diflucan. - Current Meds Current Meds: Current Medications Generic Name Dose Route Start Last Admin Trade Name Freq PRN Reason Stop Dose Admin Al Hydroxide/Mg Hydroxide 30 ml 01/09/17 19:50 01/10/17 17:21 Mylanta Plus PO 30 ml TID PRN Administration Abdominal Pain Alprazolam 1 mg 01/10/17 22:09 01/10/17 22:37 Xanax PO 1 mg QPM PRN Administration Anxiety Hydromorphone HCl 1 mg 01/09/17 19:50 01/11/17 06:10 Dilaudid Inj IVP 1 mg Q2HR PRN Administration Pain 8 to 10 Dextrose/Sodium Chloride 1,000 mls @ 100 mls/hr 01/09/17 20:00 01/10/17 21:36 D5ns IV 100 mls/hr .Q10H MORAIMA Administration Cefazolin Sodium 1 gm/ Sodium 100 mls @ 200 mls/hr 01/10/17 09:00 01/11/17 01: 47 Chloride IV 200 mls/hr Q8H MORAIMA Administration Nicotine 1 patch 01/10/17 09:00 01/10/17 10:16 Nicoderm TOP 1 patch DAILY MORAIMA Administration Pantoprazole Sodium 40 mg 01/11/17 07:00 01/11/17 06:10 Protonix PO 40 mg QDAC MORAIMA Administration Polyethylene Glycol 17 gm 01/10/17 09:00 01/10/17 07:28 Miralax PO Not Given DAILY MORAIMA Prochlorperazine Edisylate 10 mg 01/09/17 19:50 01/11/17 02:11 Compazine Inj IVP 10 mg Q6HR PRN Administration Nausea / Vomiting Sodium Chloride 10 ml 01/09/17 19:50 01/11/17 02:17 Normal Saline Flush 0.9% IVP 10 ml PRN PRN Administration NEEDED PER PROVIDER ORDERS Sodium Chloride 10 ml 01/09/17 22:00 01/11/17 06:09 Normal Saline Flush 0.9% IVP 10 ml Q8HR MORAIMA Administration - Lab Result Fish Bone Diagrams: 01/11/17 06:21 01/11/17 06:21 - Additional Planning My Orders: My Active Orders 01/11/17 06:21 HIV AB/AG 4TH GEN W/REFLEX [REFLAB] DAILYLAB 01/12/17 05:00 CBC - COMP BLD CT W/AUTO DIFF [HEME] DAILYLAB COMPREHENSIVE METABOLIC PANEL [CHEM] DAILYLAB 01/13/17 05:00 CBC - COMP BLD CT W/AUTO DIFF [HEME] DAILYLAB COMPREHENSIVE METABOLIC PANEL [CHEM] DAILYLAB Subjective - Subjective Patient Reports: Abdominal Pain Nursing Reports: Pain Objective Vital Signs: Vital Signs - 24 hr 01/10/17 01/10/17 01/10/17 08:11 15:25 15:30 Temperature 36.6 C Heart Rate [ 70 Brachial] Respiratory 18 Rate Blood Pressure [Left Brachial artery] Blood Pressure 121/81 H [Right Brachial artery] O2 Saturation 98 93 98 01/10/17 01/10/17 01/10/17 15:35 15:40 15:51 Temperature Heart Rate [ Brachial] Respiratory Rate Blood Pressure [Left Brachial artery] Blood Pressure [Right Brachial artery] O2 Saturation 96 100 97 01/10/17 01/10/17 01/10/17 16:00 16:15 16:45 Temperature 36.7 C 36.3 C L Heart Rate [ 94 49 L Brachial] Respiratory 16 18 Rate Blood Pressure 96/63 124/74 [Left Brachial artery] Blood Pressure [Right Brachial artery] O2 Saturation 96 95 100 01/10/17 01/10/17 01/10/17 18:55 20:19 23:45 Temperature 36.8 C 37.1 C 36.8 C Heart Rate [ 80 90 71 Brachial] Respiratory 16 18 16 Rate Blood Pressure 115/55 L 97/56 L [Left Brachial artery] Blood Pressure 124/82 H [Right Brachial artery] O2 Saturation 98 95 97 Oxygen O2 Source Room air I&O (Last 24 Hrs): Intake and Output Totals x24h 01/09/17 01/10/17 01/11/17 23:59 23:59 23:59 Intake Total 160 2319 300 Output Total 300 Balance -140 2319 300 General: Alert, Oriented x3, Cooperative HEENT: PERRLA, EOMI Neck: No JVD, No thyromegaly Neuro: Alert, Oriented Times 3 Cardiovascular: Regular rate, No murmurs Respiratory: No respiratory distress, Breath sounds nml - Results Results: Laboratory Results WBC 11.0 x10^3/uL (4.8-10.8) H 01/11/17 06:21 RBC 5.07 10^6/uL (4.70-6.10) 01/11/17 06:21 Hgb 14.9 g/dL (14.0-18.0) 01/11/17 06:21 Hct 44.9 % (42.0-52.0) 01/11/17 06:21 MCV 88.5 fL (80.0-94.0) 01/11/17 06:21 MCH 29.4 pg (27.0-31.0) 01/11/17 06:21 MCHC 33.2 g/dL (32.0-36.0) 01/11/17 06:21 RDW 15.2 % (12.0-15.0) H 01/11/17 06:21 Plt Count 231 10^3/uL (130-450) 01/11/17 06:21 MPV 7.2 fL (7.4-11.4) L 01/11/17 06:21 Neut # 8.5 10^3/uL (1.5-6.6) H 01/11/17 06:21 Lymph # 1.8 10^3/uL (1.5-3.5) 01/11/17 06:21 [place] # 0.6 10^3/uL (0.0-1.0) 01/11/17 06:21 Eos # 0.0 10^3/uL (0.0-0.7) 01/11/17 06:21 Baso # 0.1 10^3/uL (0.0-0.1) 01/11/17 06:21 Absolute Nucleated RBC 0.00 x10^3/uL 01/11/17 06:21 Nucleated RBCs 0.0 /100WBC 01/11/17 06:21 Manual Slide Review Indicated 01/09/17 13:40 Platelet Estimate NORMAL (130-450,000) (NORMAL) 01/09/17 13:40 Platelet Morphology NORMAL APPEARANCE (NORMAL) 01/09/17 13:40 RBC Morph Micro Appear NORMAL APPEARANCE (NORMAL) 01/09/17 13:40 Bld Gas Analysis Time 200401/09/17 20:05 Sample Site RIGHT RADIAL 01/09/17 20:05 ABG pH 7.47 (7.35-7.45) H 01/09/17 20:05 ABG pCO2 38 mmHg (34-45) 01/09/17 20:05 ABG pO2 90 mmHg (80-100) 01/09/17 20:05 ABG HCO3 27.0 mmol/L (22.0-26.0) H 01/09/17 20:05 ABG Total CO2 28.2 MMOL/L (21.0-29.0) 01/09/17 20:05 ABG O2 Saturation 97 % (94-98) 01/09/17 20:05 ABG Base Excess 3.4 mmol/L (-2.0-3.0) H 01/09/17 20:05 Nghia Test POSITIVE 01/09/17 20:05 Room Air YES 01/09/17 20:05 Sodium 137 mmol/L (135-145) 01/11/17 06:21 Potassium 4.2 mmol/L (3.5-5.0) 01/11/17 06:21 Chloride 103 mmol/L (101-111) 01/11/17 06:21 Carbon Dioxide 28 mmol/L (21-32) 01/11/17 06:21 Anion Gap 6.0 (6-13) 01/11/17 06:21 BUN 15 mg/dL (6-20) 01/11/17 06:21 Creatinine 0.9 mg/dL (0.6-1.2) 01/11/17 06:21 Estimated GFR (MDRD) 96 (>89) 01/11/17 06:21 Glucose 117 mg/dL (70-100) H 01/11/17 06:21 Calcium 8.9 mg/dL (8.5-10.3) 01/11/17 06:21 Total Bilirubin 0.8 mg/dL (0.2-1.0) 01/11/17 06:21 AST 20 IU/L (10-42) 01/11/17 06:21 ALT 19 IU/L (10-60) 01/11/17 06:21 Alkaline Phosphatase 71 IU/L (42-121) 01/11/17 06:21 Total Protein 6.4 g/dL (6.7-8.2) L 01/11/17 06:21 Albumin 3.7 g/dL (3.2-5.5) 01/11/17 06:21 Globulin 2.7 g/dL (2.1-4.2) 01/11/17 06:21 Albumin/Globulin Ratio 1.4 (1.0-2.2) 01/11/17 06:21 Lipase 15 U/L (22-51) L 01/09/17 13:40 Urine Color DARK YELLOW 01/09/17 12:26 Urine Clarity CLEAR (CLEAR) 01/09/17 12:26 Urine pH 8.5 PH (5.0-7.5) H 01/09/17 12:26 Ur Specific [place] 1.020 (1.002-1.030) 01/09/17 12:26 Urine Protein 100 mg/dL (NEGATIVE) H 01/09/17 12:26 Urine Glucose (UA) NEGATIVE mg/dL (NEGATIVE) 01/09/17 12:26 Urine Ketones 15 mg/dL (NEGATIVE) H 01/09/17 12:26 Urine Occult Blood NEGATIVE (NEGATIVE) 01/09/17 12:26 Urine Nitrite NEGATIVE (NEGATIVE) 01/09/17 12:26 Urine Bilirubin NEGATIVE (NEGATIVE) 01/09/17 12:26 Urine Urobilinogen 0.2 (NORMAL) E.U./dL (NORMAL) 01/09/17 12:26 Ur Leukocyte Esterase NEGATIVE (NEGATIVE) 01/09/17 12:26 Urine RBC 0-5 /HPF (0-5) 01/09/17 12:26 Urine WBC 11-25 /HPF (0-3) H 01/09/17 12:26 Urine WBC Clumps PRESENT 01/09/17 12:26 Ur Squamous Epith Cells FEW Squamous (<= Few) 01/09/17 12:26 Urine Bacteria Many /HPF (None Seen) H 01/09/17 12:26 Ur Microscopic Review INDICATED 01/09/17 12:26 Urine Culture Comments INDICATED 01/09/17 12:26 H. pylori IgG Antibody Negative (Negative) 01/09/17 13:40
[2017-01-11] MEDS: POLYETHYLENE GLYCOL 3350 17 GM PACKET PO SCH (09:21)
[2017-01-11] MEDS: NICOTINE 14 MG PATCH TOP SCH (10:44)
[2017-01-11] MEDS: FLUCONAZOLE 100 MG TABLET PO SCH (10:45)
--- NOTE | 2017-01-11 12:14 | PROVIDER PROGRESS NOTE ---
Subjective - General Admit Date: 01/09/17 Objective - Patient Data Vital Signs: Vital Signs x48h Temp Pulse Resp BP Pulse Ox 01/11/17 08:23 36.5 C 84 18 102/62 99 Weight: Weight 01/09/17 01/10/17 01/11/17 23:59 23:59 23:59 Weight (kg) 68.039 kg Intake & Output: Intake and Output Totals x24h 01/09/17 01/10/17 01/11/17 23:59 23:59 23:59 Intake Total 160 2319 540 Output Total 300 Balance -140 2319 540 - Lab Results Lab Results: 01/11/17 06:21 01/11/17 06:21 Other Lab Results: Lab Results x24hrs 01/11/17 01/11/17 Range/Units 06:21 06:21 WBC 11.0 H (4.8-10.8) x10^3/uL RBC 5.07 (4.70-6.10) 10^6/uL Hgb 14.9 (14.0-18.0) g/dL Hct 44.9 (42.0-52.0) % MCV 88.5 (80.0-94.0) fL MCH 29.4 (27.0-31.0) pg MCHC 33.2 (32.0-36.0) g/dL RDW 15.2 H (12.0-15.0) % Plt Count 231 (130-450) 10^3/uL MPV 7.2 L (7.4-11.4) fL Neut # 8.5 H (1.5-6.6) 10^3/uL Lymph # 1.8 (1.5-3.5) 10^3/uL [place] # 0.6 (0.0-1.0) 10^3/uL Eos # 0.0 (0.0-0.7) 10^3/uL Baso # 0.1 (0.0-0.1) 10^3/uL Absolute Nucleated RBC 0.00 x10^3/uL Nucleated RBCs 0.0 /100WBC Sodium 137 (135-145) mmol/L Potassium 4.2 (3.5-5.0) mmol/L Chloride 103 (101-111) mmol/L Carbon Dioxide 28 (21-32) mmol/L Anion Gap 6.0 (6-13) BUN 15 (6-20) mg/dL Creatinine 0.9 (0.6-1.2) mg/dL Estimated GFR (MDRD) 96 (>89) Glucose 117 H (70-100) mg/dL Calcium 8.9 (8.5-10.3) mg/dL Total Bilirubin 0.8 (0.2-1.0) mg/dL AST 20 (10-42) IU/L ALT 19 (10-60) IU/L Alkaline Phosphatase 71 (42-121) IU/L Total Protein 6.4 L (6.7-8.2) g/dL Albumin 3.7 (3.2-5.5) g/dL Globulin 2.7 (2.1-4.2) g/dL Albumin/Globulin Ratio 1.4 (1.0-2.2) - Current Medications Current Medications: Current Medications Generic Name Dose Route Start Last Admin Trade Name Freq PRN Reason Stop Dose Admin Al Hydroxide/Mg Hydroxide 30 ml 01/09/17 19:50 01/10/17 17:21 Mylanta Plus PO 30 ml TID PRN Administration Abdominal Pain Alprazolam 1 mg 01/10/17 22:09 01/10/17 22:37 Xanax PO 1 mg QPM PRN Administration Anxiety Fluconazole 100 mg 01/11/17 09:00 01/11/17 10:45 Diflucan PO 100 mg DAILY MORAIMA Administration Hydromorphone HCl 1 mg 01/09/17 19:50 01/11/17 10:44 Dilaudid Inj IVP 1 mg Q2HR PRN Administration Pain 8 to 10 Dextrose/Sodium Chloride 1,000 mls @ 100 mls/hr 01/09/17 20:00 01/10/17 21:36 D5ns IV 100 mls/hr .Q10H MORAIMA Administration Cefazolin Sodium 1 gm/ Sodium 100 mls @ 200 mls/hr 01/10/17 09:00 01/11/17 10: 45 Chloride IV 200 mls/hr Q8H MORAIMA Administration Nicotine 1 patch 01/10/17 09:00 01/11/17 10:44 Nicoderm TOP 1 patch DAILY MORAIMA Administration Pantoprazole Sodium 40 mg 01/11/17 07:00 01/11/17 06:10 Protonix PO 40 mg QDAC MORAIMA Administration Polyethylene Glycol 17 gm 01/10/17 09:00 01/11/17 09:21 Miralax PO Not Given DAILY MORAIMA Prochlorperazine Edisylate 10 mg 01/09/17 19:50 01/11/17 10:44 Compazine Inj IVP 10 mg Q6HR PRN Administration Nausea / Vomiting Sodium Chloride 10 ml 01/09/17 19:50 01/11/17 02:17 Normal Saline Flush 0.9% IVP 10 ml PRN PRN Administration NEEDED PER PROVIDER ORDERS Sodium Chloride 10 ml 01/09/17 22:00 01/11/17 06:09 Normal Saline Flush 0.9% IVP 10 ml Q8HR MORAIMA Administration Impression/Plan - Problem List Problem List: s/p egd for nausea,vomiting, epigastric pain. Esophagitis noted possibly secondary to yeast. Awaiting biopsy results. September d/c home from surgery standpoint on PPIs, diflucan with f/u in clinic in 2 weeks.
[2017-01-11] MEDS ORDERED: SODIUM CHLORIDE FLUSH 0.9% 10 ML SYRINGE IVP ONE (16:48)
[2017-01-11] MEDS: MAG HYDROX/AL HYDROX/SIMETH 30 ML UDC PO PRN ×2 (17:01→20:28)
[2017-01-11] MEDS: DEXTROSE 5%-0.9% NACL 1,000 ML IV SCH (17:53)
[2017-01-11] MEDS: ALPRAZolam 0.25 MG TABLET PO PRN (20:28)
[2017-01-12] MEDS: HYDROmorphone 1 MG/ML SYRINGE IVP PRN ×3 (00:17→07:55)
[2017-01-12] MEDS: SODIUM CHLORIDE FLUSH 0.9% 10 ML SYRINGE IVP PRN ×2 (00:18→07:55)
[2017-01-12] MEDS: PROCHLORPERAZINE 10 MG/2 ML VIAL IVP PRN ×2 (00:18→05:30)
[2017-01-12] MEDS: ceFAZolin 1 GM in SODIUM CHLORIDE 0.9% MINIBAG 100 ML IV SCH ×2 (00:18→08:48)
[2017-01-12] MEDS: DEXTROSE 5%-0.9% NACL 1,000 ML IV SCH (00:41)
[2017-01-12] MEDS: MAG HYDROX/AL HYDROX/SIMETH 30 ML UDC PO PRN (05:27)
[2017-01-12] MEDS: SODIUM CHLORIDE FLUSH 0.9% 10 ML SYRINGE IVP SCH (05:31)
[2017-01-12] MEDS: PANTOPRAZOLE 40 MG TABLET PO SCH (06:32)
[2017-01-12 07:52] VITALS: BP 128/104
[2017-01-12 08:28] LABS: BASOPHILS # (AUTO) 0.1 10^3/uL (0.0-0.1); BASOPHILS % (AUTO) 0.9 %; EOSINOPHILS # (AUTO) 0.3 10^3/uL (0.0-0.7); EOSINOPHILS % (AUTO) 4.1 %; HCT - HEMATOCRIT 39.8 % (42.0-52.0); HGB - HEMOGLOBIN 13.5 g/dL (14.0-18.0); LYMPHOCYTES # (AUTO) 2.8 10^3/uL (1.5-3.5); LYMPHOCYTES % (AUTO) 34.5 %; MEAN CORPUSCULAR HEMOGLOBIN 29.5 pg (27.0-31.0); MEAN CORPUSCULAR HGB CONC 34.1 g/dL (32.0-36.0); MEAN CORPUSCULAR VOLUME 86.5 fL (80.0-94.0); MONOCYTES # (AUTO) 0.8 10^3/uL (0.0-1.0); MONOCYTES % (AUTO) 9.4 %; NEUTROPHILS # (AUTO) 4.2 10^3/uL (1.5-6.6); NEUTROPHILS % (AUTO) 51.1 %; UNCORRECTED WHITE BLOOD COUNT 8.2 x10^3/uL; WHITE BLOOD COUNT 8.2 x10^3/uL (4.8-10.8)
[2017-01-12] MEDS ORDERED: ceFAZolin 1 GM VIAL ONE (08:35)
[2017-01-12 08:36] LABS: ALBUMIN/GLOBULIN RATIO 1.3 (1.0-2.2); BILIRUBIN,TOTAL 0.5 mg/dL (0.2-1.0); CALCIUM 8.4 mg/dL (8.5-10.3); CREATININE 0.9 mg/dL (0.6-1.2); POTASSIUM 3.5 mmol/L (3.5-5.0); TOTAL PROTEIN 5.4 g/dL (6.7-8.2)
[2017-01-12] MEDS: FLUCONAZOLE 100 MG TABLET PO SCH (08:48)
[2017-01-12] MEDS: NICOTINE 14 MG PATCH TOP SCH (08:49)
[2017-01-12] MEDS ORDERED: oxyCODONE 5 MG TABLET PO PRN (11:07)
--- NOTE | 2017-01-12 11:17 | Discharge Plan ---
Discharge Plan Disposition: Home, Self Care Condition: Good Prescriptions: oxyCODONE [Roxicodone] 5 mg PO Q4HR PRN #30 tablet PRN Reason: Pain Fluconazole [Diflucan] 100 mg PO DAILY #21 tablet Nicotine 14 mg Patch [Nicoderm] 1 patch TOP DAILY #14 patch Pantoprazole [Protonix] 40 mg PO QDAC #30 tablet Sucralfate 1 gm PO ACHS #120 tablet Ondansetron Odt [Zofran Odt] 4 mg TL Q6H PRN #10 tablet PRN Reason: Nausea / Vomiting Diet: Regular Activity Restrictions: Activity as Tolerated Weight Bearing: Full Weight Instruction Topics: Abdominal Pain, ED GERD, ED Pneumonia Adult Additional Instructions or Follow Up instructions: The CT scan of your abdomen did not show any major problems in the abdomen - no bowel blockage/infection/perforation, no kidney stones or gallstones, normal pancreas, normal appendix, no aneurysm But your esophagus was thickened on CT scan and you should follow up with your PMD to get a referral to GI to get a scope of your stomach and esophagus This finding also makes me suspect you pain is due to gastritis / ulcers and acid reflux so I have prescribed medications for that. That would explain the blood in your vomit/stool too The blood work was notable for a high white blood cell count indicating infection or inflammation, a slightly elevated glucose level which could be due to illness but needs to be rechecked when you feel better, and an elevated calcium level which you should see you PMD about for further work up The urine test showed a possible urine infection, a final culture is being run and will be resulted in the next few days. The urine culkture was negative no infection. Your chest xray looked fine too but your left lung sounds like mucus so i would recommend a repeat xray in 2-3 weeks Make an appt to be seen in the next 7-10 days. Please, please quit smoking and never restart. Thank you Dr. Carrion No Smoking: If you smoke, Please STOP! Call for help.
--- NOTE | 2017-01-14 10:22 | DISCHARGE SUMMARY ---
DATE OF ADMISSION: 01/09/2017 DATE OF DISCHARGE: 01/12/2017 ADMISSION DIAGNOSES 1. Esophagitis. 2. Gastroenteritis. 3. Intractable vomiting. 4. Urinary tract infection. 5. Dehydration. DISCHARGE DIAGNOSES 1. Esophagitis with clinical features characteristic of Candidiasis esophagitis. 2. Gastritis. 3. Intractable vomiting, resolved. 4. Urinary tract infection ruled out. No growth on urine culture. 5. Dehydration, resolved. 6. Chronic tobacco abuse. 7. Suspect no compromised status with testing pending for tuberculosis and human immunodeficiency vir us. CONSULTATIONS: Dr. Humberto Cardenas. See copy of consult. SPECIAL PROCEDURES: Esophagogastroduodenoscopy which results were showing the esophagitis. Abdominal pelvis CT conclusion 1. Distal esophageal wall thickening. 2. Moderate gastric distention. 3. Normal appendix. HOSPITAL COURSE AND MANAGEMENT: Initial presentation, emergency department evaluation, and hospitalis t plan are well described in the history and physical, see copy of same. SUMMARY: This is a 36-year-old white male with past medical history being negative, does smoke a half a pack a day. The patient presents due to the history of abdominal pain, retching, gagging, nausea, vomiting, had 1 episode of hematemesis, possibly diarrhea, also arthralgias. In the emergency departm ent, found to have intractable vomiting and abnormal CT exam. The patient also had a leukocytosis and a hemoglobin of 18 suggesting dehydration. The patient was admitted to the hospital for further diag nostics and therapeutics. The patient had continued nausea the first day and was improved by the end of the 24 hours and had return of the nausea and a couple of episodes of vomiting the next day. He clements d an EGD done, which findings are shown above. The patient was started on Carafate, Diflucan and PPI was continued. The patient improved the following day and was discharged home. The patient was examin ed on the day of discharge. PHYSICAL EXAMINATION VITAL SIGNS: 36.4, 72, 117/65, 16, 99 on room air saturation. EYES: EOM within normal limits, PERRL, nonicteric. MOUTH AND THROAT: Moist mucous membranes. No other pathology noted of the mouth or pharynx. NECK: No lymphadenopathy. No tracheal deviation, JVD or bruits. CHEST WALL: Nontender. Symmetric. LUNGS: Clear, good air movement. HEART: Normal sinus rhythm. No murmur, rubs, clicks. ABDOMEN: Soft. There is some diffuse upper abdominal tenderness but no rebound and the tenderness was much improved. VASCULAR: Normal distal pulses. SKIN: No dermatitis, suspicious lesions. NEUROLOGICAL: Cognitive intact. Cranial nerves intact. Motor intact. LABORATORY DATA: White count 8.2, hemoglobin and hematocrit 13 and 39 with platelet count 205. The pa tient's sodium 138, potassium 3.5, chloride 107, CO2 of 26, BUN 10, creatinine 0.9. He had an albumin of 8.4 glucose 100. The albumin was 3.7 Urine showed a few squamous and many bacteria with 11-25 whi te count. The patient's urinary culture was negative. ALLERGIES: NO KNOWN ALLERGIES. DISCHARGE MEDICATIONS: He is discharged home on 1. Oxycodone 5 mg every 4 hours as needed. 2. Sucralfate 1 gram 4 times a day. 3. Protonix 40 mg a day. 4. Ondansetron 4 mg q.6 hours ODT. 5. Nicotine patch 14 mg 1 a day for 14 days and then 7 mg 1 a day for 14 days. 6. Diflucan 100 mg daily for 21 days. DISCHARGE ISSUES FOR FOLLOWUP: Esophagitis: Patient needs to have a followup in 2 weeks with the [facility]. It is imperative for him to quit smoking, which he was counseled and given the patches. T he patient needs to have the PPD read in the next 24-48 hours and is going to the emergency departmen t to have this done, it is recommended given the holiday and lack of outpatient resources f or this. Patient has an HIV, which is pending at the time of discharge. The patient's time spent in d ischarge activity including his examination, counseling, education, and collaboration with case manag ement and nursing is 40 minutes. Examination having been conducted the day of discharge. JOB #: [id number] EXT JOB #:[id number]
== END 2017-01-12 11:42 | disposition home or self-care (01) | DRG 369 ==
LOC: ED 11:39 → UNDOADMIN 19:07 → MS2 19:07 → ED 19:40
PROVIDERS: ADMIT Internal Medicine; ATTEND Internal Medicine
PROC: 0DB68ZX Excision of Stomach, Via Natural or Artificial Opening Endoscopic, Diagnostic (ICD-10-PCS; 2017-01-10)
PROC: 0DB28ZX Excision of Middle Esophagus, Via Natural or Artificial Opening Endoscopic, Diagnostic (ICD-10-PCS; 2017-01-10)
PROC: 0DB38ZX Excision of Lower Esophagus, Via Natural or Artificial Opening Endoscopic, Diagnostic (ICD-10-PCS; 2017-01-10)
PROC: 0DB98ZX Excision of Duodenum, Via Natural or Artificial Opening Endoscopic, Diagnostic (ICD-10-PCS; principal; 2017-01-10 14:00)
DX: B37.81 Candidal esophagitis (principal); N39.0 Urinary tract infection, site not specified; K22.10 Ulcer of esophagus without bleeding; K29.70 Gastritis, unspecified, without bleeding; K44.9 Diaphragmatic hernia without obstruction or gangrene; R11.2 Nausea with vomiting, unspecified; E86.0 Dehydration; E87.8 Other disorders of electrolyte and fluid balance, not elsewhere classified; F17.210 Nicotine dependence, cigarettes, uncomplicated; Z90.49 Acquired absence of other specified parts of digestive tract
CPT/HCPCS: 36415; 36600; 71010; 74177; 80053; 81001; 81003; 82803; 83690; 83735; 84132; 85014; 85018; 85025; 87040; 87086; 87339; 87389; 96361; 96365; 96375; 99284